=== PATIENT | female | born 1970 | race Caucasian/White ===

== ENCOUNTER 2023-02-22 09:16 | Emergency (ER) | payer SELFPAY ==
[~2023-02-22] VITALS: Ht 162.6 cm; Wt 59.0 kg
[2023-02-22 09:26] VITALS: O2SAT 100
== END 2023-02-22 09:44 | disposition home or self-care (01) ==
LOC: ER 09:23
DX: M25.412 Effusion, left shoulder (principal); M70.22 Olecranon bursitis, left elbow; W18.39XA Other fall on same level, initial encounter
CPT/HCPCS: 99283